=== PATIENT | male | born 1980 | race Caucasian/White ===

== ENCOUNTER 2018-09-15 06:27 | Emergency (ER) | payer OTHER ==
[~2018-09-15] VITALS: Ht 172.7 cm; Wt 77.1 kg
[2018-09-15 06:27] VITALS: BP 137/87
[~2018-09-15 06:27] MED LIST: CLONIDINE0.1 PO; DOXYCYCLINE 10100 MG PO; NORCO 5-325 TA1 EACH PO
[2018-09-15] MEDS ORDERED: NAPROSYN500 MG PO (06:54)
[2018-09-15] MEDS ORDERED: NORFLEX100 MG PO (06:54)
== END 2018-09-15 07:26 | disposition home or self-care (01) ==
LOC: ER 06:27
DX: M62.838 Other muscle spasm (principal); Z88.0 Allergy status to penicillin; Z88.2 Allergy status to sulfonamides; Z91.030 Bee allergy status

== ENCOUNTER 2020-07-20 05:10 | Emergency (ER) | payer BC ==
[~2020-07-20] VITALS: Ht 182.9 cm; Wt 106.6 kg
[~2020-07-20 05:10] MED LIST changes: +NAPROSYN500 MG PO; +NORFLEX100 MG PO
--- NOTE | 2020-07-20 13:03 | EKG ---
[place] [address] [facility] [place] [address] ELECTROCARDIOGRAM REPORT Name: RAMIN AKBAR [facility]: [id number] Admission: 07/20/20 Attend Phys: Discharge: 07/20/20 Date of : 76 Report #: [id number] [facility] ED Test Date: 2020-07-20 Test Time: 05:19:20 Pat Name: RAMIN AKBAR Department: Room: Gender: Supervisor [employer]: EL[place]IA : 1980 Requested By: Didier Ramos Order Number: [id number] MD: Darron Darling Measurements Intervals [place] Rate: 73 P: 65 GA: 162 QRS: -17 QRSD: 99 T: 46 QT: 410 QTc: 452 Interpretive Statements Sinus rhythm Borderline left axis deviation Compared to ECG 01/28/2016 19:05:52 No significant change was found Electronically Signed On 07-20-2020 13:03:36 CDT by Darron Darling [email or web address] <ELECTRONICALLY SIGNED> By: Darron Darling MD, [facility] 07/20/20 1303 0519 0519 Darron Darling MD, FACC /EPI
== END 2020-07-20 05:40 | disposition home or self-care (01) ==
LOC: ER 05:10
DX: R22.2 Localized swelling, mass and lump, trunk (principal); Z91.030 Bee allergy status; Z88.0 Allergy status to penicillin; Z88.2 Allergy status to sulfonamides

== ENCOUNTER 2020-11-27 12:28 | Emergency (ER) | payer BC ==
[~2020-11-27] VITALS: Ht 182.9 cm; Wt 106.6 kg
[2020-11-27 12:29] VITALS: BP 112/85
[2020-11-27] MEDS ORDERED: CARVEDILOL25 MG PO (12:33)
[2020-11-27] MEDS ORDERED: HYDROCHLOROTHIA25 M1 PO (12:33)
== END 2020-11-27 13:18 | disposition home or self-care (01) ==
LOC: ER 12:28
DX: U07.1 COVID-19 (principal); Z79.2 Long term (current) use of antibiotics; Z79.899 Other long term (current) drug therapy; Z88.0 Allergy status to penicillin; Z91.030 Bee allergy status; Z88.2 Allergy status to sulfonamides

== ENCOUNTER 2021-03-16 09:34 | Emergency (ER) | payer BC ==
[~2021-03-16] VITALS: Ht 182.9 cm; Wt 106.6 kg
[~2021-03-16 09:34] MED LIST changes: +CARVEDILOL25 MG PO; +HYDROCHLOROTHIA25 M1 PO
[2021-03-16 09:53] VITALS: BP 130/83
[2021-03-16] MEDS ORDERED: DOXYCYCLINE 10100 MG PO (12:01)
--- NOTE | 2021-03-17 11:51 | EKG ---
[place] [address] [place] [address] ELECTROCARDIOGRAM REPORT Name: RAMIN AKBAR MARGIE [id number] Admission: 03/16/21 Attend Phys: Discharge: 03/16/21 Date of : [birth year] Report #: [id number] [facility] ED Test Date: 2021-03-16 Test Time: 09:47:48 Pat Name: RAMIN AKBAR Department: Room: Gender: M [employer] Machine Set Up Operator: am : 1980 Requested By: Jesus Solomon Order Number: [id number] MD: Darron Darling Measurements Intervals [place] Rate: 90 P: 41 SC: 159 QRS: -24 QRSD: 100 T: 20 QT: 383 QTc: 469 Interpretive Statements Sinus rhythm Borderline left axis deviation Abnormal R-wave progression, late transition Compared to ECG 07/20/2020 05:19:20 No significant changes Electronically Signed On 03-17-2021 11:51:30 PHYSICAL SCIENCE PROFESSOR by Darron Darling [email or web address] <ELECTRONICALLY SIGNED> By: Darron Darling MD, [facility] 03/17/21 1151 0947 0947 Darron Darling MD, FACC /EPI
== END 2021-03-16 12:02 | disposition home or self-care (01) ==
LOC: ER 09:34
DX: J06.9 Acute upper respiratory infection, unspecified (principal); Z20.822 Contact with and (suspected) exposure to COVID-19; R05.9 Cough, unspecified; R53.81 Other malaise; Z98.890 Other specified postprocedural states; Z79.899 Other long term (current) drug therapy; Z88.0 Allergy status to penicillin; Z88.2 Allergy status to sulfonamides; Z91.030 Bee allergy status